=== PATIENT | male | born 1985 | race Caucasian/White ===

== ENCOUNTER 2021-01-26 09:34 | Inpatient (IN) | payer BC ==
[~2021-01-26] VITALS: Ht 160 cm; Wt 84.4 kg
[2021-01-26] MEDS ORDERED: SODIUM CHLORIDE 0.9% 1000ML 1,000 ML IV STA (09:56)
[2021-01-26 10:07] LABS: BASOPHILS % 0.3 % (0.0-1.0); HEMATOCRIT 52.6 % (38.2-49.6); HEMOGLOBIN 17.2 g/dL (14.0-18.0); LYMPHOCYTES # (AUTO) 0.9 (1.0-3.2); LYMPHOCYTES % 8.6 % (18.0-39.1); MEAN CORPUSCULAR HGB CONC 32.7 g/dL (31-35); MEAN CORPUSCULAR VOLUME 85.5 fL (81-99); MONOCYTES # (AUTO) 0.3 (0.2-0.8); MONOCYTES % 2.8 % (4.4-11.3); NEUTROPHILS # (AUTO) 8.5 (2.1-6.9); NEUTROPHILS % 84.3 % (38.7-80.0); PLATELET COUNT 256 x10e3/uL (140-360); RED BLOOD COUNT 6.15 x10e6/uL (4.3-5.7)
[2021-01-26 10:26] LABS: ALBUMIN 3.5 g/dL (3.5-5.0); ALBUMIN/GLOBULIN RATIO 0.8 (0.8-2.0); ANION GAP 18.6 mmol/L (8-16); CALCIUM 8.7 mg/dL (8.4-10.2); CREATININE, SERUM 0.78 mg/dL (0.72-1.25); POTASSIUM 3.6 mmol/L (3.5-5.1)
[2021-01-26 10:32] LABS: CREATINE KINASE MB 0.7 ng/mL (0-5.0)
[2021-01-26] MEDS: DEXAMETHASONE SOD PHOS 10 MG/1 ML VIAL IV SCH (10:48)
[2021-01-26] MEDS: CEFTRIAXONE 1 GM in SODIUM CHLORIDE 0.9% 50ML 50 ML IV SCH (10:48)
[2021-01-26 11:31] LABS: CLARITY,URINE CLEAR (CLEAR); COLOR,URINE YELLOW (YELLOW); LEUKOCYTE ESTERASE ,URINE NEGATIVE (NEGATIVE); NITRITE,URINE NEGATIVE (NEGATIVE); PROTEIN,URINE DIPSTICK 2+ (NEGATIVE)
[2021-01-26 11:32] LABS: BACTERIA,URINE RARE /HPF; EPITHELIAL CELLS,URINE FEW /LPF; KETONES,URINE >=160 (NEGATIVE); RBC,URINE 0-5 /HPF (0-5); URINE UROBILINOGEN 0.2 mg/dL (0.2 - 1); WBC,URINE (MAN) 0-5 /HPF (0-5)
[2021-01-26] MEDS ORDERED: GUAIFENESIN/CODEINE 10 ML CUP PO PRN (13:45)
[2021-01-26] MEDS ORDERED: SIMETHICONE 80 MG CHEW PO PRN (13:45)
[2021-01-26] MEDS ORDERED: HYDRALAZINE HCL 20 MG/ML VIAL IV PRN (13:45)
[2021-01-26] MEDS ORDERED: ACETAMINOPHEN 325 MG TAB PO PRN (13:45)
[2021-01-26] MEDS ORDERED: DIPHENHYDRAMINE HCL 25 MG CAP PO PRN (13:45)
[2021-01-26] MEDS ORDERED: CHLORASEPTIC SPRAY 177 ML BTL MM PRN (13:45)
[2021-01-26] MEDS ORDERED: MELATONIN 5 MG TABLET PO PRN (13:45)
[2021-01-26] MEDS ORDERED: ONDANSETRON HCL INJ 2MG/ML 2ML 2 MG/ML VIAL IV PRN (13:45)
[2021-01-26] MEDS ORDERED: DOCUSATE SODIUM 100 MG CAP PO PRN (13:45)
[2021-01-26] MEDS ORDERED: DEXTROSE 50% SYRINGE 50 ML IV PRN (13:45)
[2021-01-26] MEDS ORDERED: POTASSIUM CHLORIDE 20 MEQ TAB CR PO PRN (13:45)
[2021-01-26] MEDS ORDERED: REMDESIVIR 100MG 200 MG in SODIUM CHLORIDE 0.9% 100 ML IV ONE (14:00)
[2021-01-26] MEDS ORDERED: MONTELUKAST SOD10 MG PO (15:34)
[2021-01-26 15:46] VITALS: BP 119/88
[2021-01-26 16:01] VITALS: BP 119/88
[2021-01-26] MEDS: ASCORBIC ACID 500 MG TAB PO SCH (17:58)
[2021-01-26] MEDS: ENOXAPARIN SOD INJ 40 MG/0.4 ML SYR SC SCH (17:59)
[2021-01-26 19:12] LABS: CREATINE KINASE MB 0.7 ng/mL (0-5.0)
[2021-01-26 20:00] VITALS: BP 110/76
[2021-01-26 21:00] VITALS: BP 110/76
[2021-01-27] VITALS (7 sets, daily range): BP systolic 109–136; BP diastolic 71–91
[2021-01-27 06:52] LABS: BASOPHILS % 0.2 % (0.0-1.0); HEMATOCRIT 45.9 % (38.2-49.6); LYMPHOCYTES % 17.1 % (18.0-39.1); MEAN CORPUSCULAR HGB CONC 32.7 g/dL (31-35); MEAN CORPUSCULAR VOLUME 85.8 fL (81-99); MONOCYTES # (AUTO) 0.4 (0.2-0.8); MONOCYTES % 6.7 % (4.4-11.3); NEUTROPHILS # (AUTO) 4.2 (2.1-6.9); NEUTROPHILS % 73.1 % (38.7-80.0); PLATELET COUNT 268 x10e3/uL (140-360); RED BLOOD COUNT 5.35 x10e6/uL (4.3-5.7); RED CELL DISTRIBUTION WIDTH 14.1 % (11.7-14.4)
[2021-01-27 07:05] LABS: ALBUMIN 2.8 g/dL (3.5-5.0); ALBUMIN/GLOBULIN RATIO 0.8 (0.8-2.0); ANION GAP 14.8 mmol/L (8-16); CREATININE, SERUM 0.71 mg/dL (0.72-1.25); POTASSIUM 3.8 mmol/L (3.5-5.1)
[2021-01-27 07:27] LABS: CREATINE KINASE MB 0.8 ng/mL (0-5.0)
[2021-01-27 07:38] LABS: MAGNESIUM 2.3 MG/DL (1.3-2.1); PHOSPHORUS 2.6 MG/DL (2.3-4.7)
[2021-01-27] MEDS ORDERED: GUAIFENESIN/CODEINE 5 ML LIQD PO PRN (07:45)
[2021-01-27] MEDS ORDERED: LIDOCAINE 4% PATCH TP PRN (09:00)
[2021-01-27] MEDS: ZINC SULFATE 50 MG CAP PO SCH (09:25)
[2021-01-27] MEDS: ASCORBIC ACID 500 MG TAB PO SCH ×2 (09:25→17:00)
[2021-01-27] MEDS: PANTOPRAZOLE SOD 40 MG TABEC PO SCH (09:25)
[2021-01-27] MEDS: CEFTRIAXONE 1 GM in SODIUM CHLORIDE 0.9% 50ML 50 ML IV SCH (09:25)
[2021-01-27] MEDS: DEXAMETHASONE SOD PHOS 10 MG/1 ML VIAL IV SCH (09:25)
[2021-01-27] MEDS: REMDESIVIR 100MG 100 MG IV SCH (14:54)
[2021-01-27] MEDS: ENOXAPARIN SOD INJ 40 MG/0.4 ML SYR SC SCH (17:00)
[2021-01-28 00:57] VITALS: BP 116/89
[2021-01-28 04:00] VITALS: BP 127/88
[2021-01-28] MEDS: DEXAMETHASONE SOD PHOS 10 MG/1 ML VIAL IV SCH (09:25)
[2021-01-28] MEDS: PANTOPRAZOLE SOD 40 MG TABEC PO SCH (09:25)
[2021-01-28] MEDS: ASCORBIC ACID 500 MG TAB PO SCH ×2 (09:25→16:12)
[2021-01-28] MEDS: CEFTRIAXONE 1 GM in SODIUM CHLORIDE 0.9% 50ML 50 ML IV SCH (09:25)
[2021-01-28] MEDS: ZINC SULFATE 50 MG CAP PO SCH (09:25)
[2021-01-28 09:38] VITALS: BP 115/78
[2021-01-28] MEDS: REMDESIVIR 100MG 100 MG IV SCH (14:03)
[2021-01-28] MEDS: ENOXAPARIN SOD INJ 40 MG/0.4 ML SYR SC SCH (16:12)
[2021-01-28 20:54] VITALS: BP 115/81
[2021-01-28 21:00] VITALS: BP 115/81
[2021-01-29] VITALS (8 sets, daily range): BP systolic 107–126; BP diastolic 74–86
[2021-01-29 05:37] LABS: BASOPHILS % 0.3 % (0.0-1.0); EOSINOPHILS % 0.1 % (0.0-6.0); HEMATOCRIT 49.1 % (38.2-49.6); HEMOGLOBIN 16.2 g/dL (14.0-18.0); LYMPHOCYTES # (AUTO) 1.5 (1.0-3.2); LYMPHOCYTES % 14.9 % (18.0-39.1); MEAN CORPUSCULAR HEMOGLOBIN 27.9 pg (28-32); MEAN CORPUSCULAR VOLUME 84.5 fL (81-99); MONOCYTES # (AUTO) 0.6 (0.2-0.8); MONOCYTES % 5.7 % (4.4-11.3); NEUTROPHILS # (AUTO) 7.5 (2.1-6.9); NEUTROPHILS % 76.6 % (38.7-80.0); PLATELET COUNT 350 x10e3/uL (140-360); RED BLOOD COUNT 5.81 x10e6/uL (4.3-5.7)
[2021-01-29 06:01] LABS: ANION GAP 15.5 mmol/L (8-16); CALCIUM 8.3 mg/dL (8.4-10.2); CREATININE, SERUM 0.7 mg/dL (0.72-1.25); POTASSIUM 3.5 mmol/L (3.5-5.1)
[2021-01-29] MEDS: DEXAMETHASONE SOD PHOS 10 MG/1 ML VIAL IV SCH (09:06)
[2021-01-29] MEDS: PANTOPRAZOLE SOD 40 MG TABEC PO SCH (09:06)
[2021-01-29] MEDS: CEFTRIAXONE 1 GM in SODIUM CHLORIDE 0.9% 50ML 50 ML IV SCH (09:06)
[2021-01-29] MEDS: ASCORBIC ACID 500 MG TAB PO SCH ×2 (09:06→17:46)
[2021-01-29] MEDS: ZINC SULFATE 50 MG CAP PO SCH (09:06)
[2021-01-29] MEDS: REMDESIVIR 100MG 100 MG IV SCH (13:27)
[2021-01-29] MEDS: ENOXAPARIN SOD INJ 40 MG/0.4 ML SYR SC SCH (17:46)
[2021-01-30] VITALS: BP 116/75
[2021-01-30 04:00] VITALS: BP 125/87
[2021-01-30 09:41] VITALS: BP 112/86
[2021-01-30 09:44] VITALS: BP 112/86
[2021-01-30] MEDS: ASCORBIC ACID 500 MG TAB PO SCH (09:56)
[2021-01-30] MEDS: DEXAMETHASONE SOD PHOS 10 MG/1 ML VIAL IV SCH (09:56)
[2021-01-30] MEDS: CEFTRIAXONE 1 GM in SODIUM CHLORIDE 0.9% 50ML 50 ML IV SCH (09:56)
[2021-01-30] MEDS: ZINC SULFATE 50 MG CAP PO SCH (09:56)
[2021-01-30] MEDS: PANTOPRAZOLE SOD 40 MG TABEC PO SCH (09:56)
[2021-01-30 12:00] VITALS: BP 110/71
[2021-01-30] MEDS ORDERED: ONDANSETRON HCL 4 MG ORAL DISINTEGRATING TAB PO PRN (13:00)
[2021-01-30] MEDS: REMDESIVIR 100MG 100 MG IV SCH (14:06)
[2021-01-30] MEDS ORDERED: DEXAMETHASONE4 MG PO (14:54)
== END 2021-01-30 16:20 | disposition home or self-care (01) | DRG 871 ==
LOC: ER 09:45 → ERHOLD 12:57 → IMCU 14:45
PROVIDERS: ADMIT Internal Medicine; ATTEND Internal Medicine
PROC: 8E0ZXY6 Isolation (ICD-10-PCS; principal; 2021-01-26)
PROC: XW033E5 Introduction of Remdesivir Anti-infective into Peripheral Vein, Percutaneous Approach, New Technology Group 5 (ICD-10-PCS; 2021-01-26)
DX: A41.89 Other specified sepsis (principal); U07.1 COVID-19; J12.82 Pneumonia due to coronavirus disease 2019; J96.01 Acute respiratory failure with hypoxia; E66.01 Morbid (severe) obesity due to excess calories; Z68.32 Body mass index [BMI] 32.0-32.9, adult
CPT/HCPCS: 36415; 71045; 80048; 80053; 81001; 82550; 82553; 83735; 84100; 84484; 85025; 86140; 87040; 93005; 99285; J0456; J0696; J1100; J1650; J7030; J7050; U0002